=== PATIENT | male | born 1955 | race Two or more races ===

== ENCOUNTER 2025-03-20 10:00 | Emergency (ER) | payer OTHER ==
[~2025-03-20] VITALS: Ht 170.2 cm; Wt 65.8 kg
[2025-03-20] MEDS ORDERED: ENALAPRILAT DIHYDRATE 2.5 MG/2 ML VIAL IV ONE (11:45)
[2025-03-20 12:39] LABS: BASO % 0.6 % (0.1-1.2); EOS # 0.19 (0.04-0.54); EOS % 2.3 % (0.7-7.0); HEMATOCRIT 47.6 % (40.1-51.0); HEMOGLOBIN 15.6 g/dL (13.7-17.5); LYMPH # 1.64 (1.18-3.74); LYMPH % 19.9 % (19.3-53.1); MEAN CORPUSCULAR HEMOGLOBIN 29.3 pg (25.6-32.2); MONO # 0.48 (0.24-0.82); MONO % 5.8 % (4.7-12.5); NEUT # 5.84 (1.56-6.13); PLATELET COUNT 329 K/uL (163-369); RED BLOOD COUNT 5.33 M/uL (4.63-6.08); RED CELL DISTRIBUTION WIDTH 13.2 % (11.6-14.4)
[2025-03-20 12:49] LABS: PH,URINE 6.5 (5.0-8.0); URINE APPEARANCE Clear; URINE BILIRRUBIN Negative (NEGATIVE); URINE BLOOD Negative; URINE COLOR Yellow; URINE GLUCOSE Negative (NEGATIVE); URINE KETONE Negative (NEGATIVE); URINE LEUKOCYTE Negative; URINE NITRATE Negative; URINE PROTEIN Trace (NEGATIVE)
[2025-03-20 13:09] LABS: URINE BACTERIA SOME; URINE EPITHELIAL CELLS 0-4 /HPF; URINE MUCUS SCANT; URINE RBC 0-3 /HPF; URINE SPERM FEW; URINE WBC 0-2 /hpf
[2025-03-20] MEDS ORDERED: cloNIDine HCL 0.2 MG TABLET PO ONE (15:15)
[2025-03-20] MEDS ORDERED: FUROsemide 40 MG/4 ML VIAL IV ONE (17:00)
[2025-03-20] MEDS ORDERED: GENTAMICIN SULFATE 0.15 MG/DR DROPS 5ML OP ONE (17:30)
[2025-03-20] MEDS ORDERED: TOBRAMYCIN/DEXAMETHASONE 20 DR/ML DROPS OP SCH (18:00)
== END 2025-03-20 18:08 | disposition home or self-care (01) ==
LOC: ER 11:00
PROVIDERS: Emergency Medicine
DX: H53.142 Visual discomfort, left eye (principal); I10 Essential (primary) hypertension
CPT/HCPCS: 36415; 93005; 93041; 96365; 99282; J3490 ×2